=== PATIENT | female | born 1990 | race Caucasian/White ===

== ENCOUNTER 2016-09-06 20:29 | Emergency (ER) | payer OTHER ==
[~2016-09-06] VITALS: Ht 172.7 cm; Wt 122.5 kg
[2016-09-06] MEDS ORDERED: ALLE60TA69 PO (20:42)
[2016-09-06] MEDS ORDERED: ZYRT10CA PO (20:42)
[2016-09-06] MEDS ORDERED: ONDANSETRON 4MG/2ML VIAL (J2405) IV ONE (21:15)
[2016-09-06] MEDS ORDERED: KETOROLAC 30 MG/ML VIAL (J1885) IV ONE (21:15)
[2016-09-06] MEDS ORDERED: NS 1,000 ML IV ONE (21:15)
[2016-09-06 21:33] LABS: BASO # 0.1 K/mm3 (0.0-0.2); BASO % 1.4 % (0.0-1.0); EOS # 0.1 K/mm3 (0.0-0.50); EOS % 1.4 % (0.0-3.0); LARGE UNSTAINED CELL # 0.1 K/mm3 (0.0-0.4); LARGE UNSTAINED CELL % 1.4 % (0.0-4.0); LYMPH # 3.2 K/mm3 (1.5-6.5); LYMPH % 30.7 % (24.0-44.0); MEAN CORPUSCULAR HEMOGLOBIN 30.3 pg (27.0-33.0); MEAN CORPUSCULAR VOLUME 89.2 fl (80.0-96.0); MONO # 0.6 K/mm3 (0.0-0.8); MONO % 5.7 % (0.0-5.0); NEUTROPHILS # 5.8 K/mm3 (1.8-7.7); NEUTROPHILS % 59.3 % (36.0-66.0); PLATELET COUNT, AUTOMATED 323 k/mm3 (150-450); RED CELL DISTRIBUTION WIDTH 11.7 % (11.5-14.5); WHITE BLOOD COUNT 9.8 K/mm3 (4.0-10.0)
[2016-09-06 21:43] LABS: CONTROL LINE UCG INT CTR LINE PRESENT
[2016-09-06 21:46] LABS: ALBUMIN 4.2 GM/DL (3.2-5.2); ALBUMIN/GLOBULIN RATIO 1.24 (1.00-1.93); ALKALINE PHOSPHATASE 80 U/L (45-117); ALT/SGPT 33 U/L (12-78); AMYLASE 53 U/L (25-115); ANION GAP 9 MEQ/L (8-16); AST/SGOT 18 U/L (15-37); BILIRUBIN,DIRECT 0.1 MG/DL (0.0-0.2); BILIRUBIN,TOTAL 0.4 MG/DL (0.2-1.0); BLOOD UREA NITROGEN 14 MG/DL (7-18); CALCIUM LEVEL 9.5 MG/DL (8.5-10.1); CARBON DIOXIDE LEVEL 27 MEQ/L (21-32); CHLORIDE LEVEL 106 MEQ/L (98-107); CREATININE FOR GFR 0.93 MG/DL (0.55-1.02); GLOMERULAR FILTRATION RATE > 60.0 (>60); GLUCOSE, FASTING 97 MG/DL (70-105); POTASSIUM SERUM 3.5 MEQ/L (3.5-5.1); SODIUM LEVEL 142 MEQ/L (136-145); TOTAL PROTEIN 7.6 GM/DL (6.4-8.2)
--- NOTE | 2016-09-06 23:00 | REPUSA ---
HISTORY: Right flank pain. TECHNIQUE: Right upper quadrant ultrasound. COMPARISON: CT abdomen November 26, 2015. ULTRASOUND RUQ: Liver: No intrahepatic ductal dilation. Gallbladder: Normally distended and without stones or wall thickening at 1.9 mm. Common bile duct: Nondistended at 4.8 mm. Pancreas: The tail is poorly visualized due to overlying bowel gas. No pancreatic duct dilation. Right kidney: 12.9 x 6.7 x 6.7 cm. No stones large enough for ultrasound sensitivity. Minimal pelviec tasis without hydronephrosis. Aorta: Normal caliber. Peritoneum: No free fluid. IMPRESSION: No acute right upper quadrant findings. Although there is mild right renal pelviectasis, there is no landon hydronephrosis as visualized on the November 2015 CT abdomen. If there is strong clinic al suspicion for ureteral stone, it may be necessary to perform abdominal pelvic CT.
--- NOTE | 2016-09-06 23:20 | REPUSA ---
CLINICAL HISTORY: Abdominal pain. TECHNIQUE: Multiple axial, sagittal and coronal CT images were obtained through the abdomen and pelvi s without administration of oral or IV contrast material. COMMENTS: The liver is of uniform attenuation without mass or defect. There is no intra or extrahepatic biliary ductal dilatation. The spleen is normal. The gallbladder is contracted. The pancreas is of normal c ontour and attenuation characteristics. There is no evidence of adrenal mass. The kidneys are normal in size, shape and configuration. 4 mm calculus is noted at the right UVJ prod ucing mild hydroureteronephrosis. There is no evidence for appendicitis. There is no bowel wall thickening. No evidence for small or la rge bowel obstruction. There is no evidence of abdominal ascites or lymphadenopathy. There is no evidence of intrinsic or extrinsic bladder mass. There is no pelvic ascites or lymphadeno franklin. The uterus and ovaries are unremarkable. Images of the lung bases show no evidence of pleural or parenchymal mass. There are no pleural effusi ons. The bony structures are free of lytic or blastic lesions. IMPRESSION: 4 mm calculus is noted at the right UVJ producing mild hydroureteronephrosis. Thank you for your kind referral of this patient.
[2016-09-06] MEDS ORDERED: NORC1TAB4 PO (23:52)
[2016-09-06] MEDS ORDERED: IBUP80TA PO (23:52)
[2016-09-06] MEDS ORDERED: ZOFR4TAB3 PO (23:52)
[2016-09-06] MEDS ORDERED: FLOM5CAP PO (23:52)
[2016-09-07] MEDS ORDERED: NORCO 5/325MG TABLET (BULK FOR ED) PO ONE
[2016-09-07 00:12] VITALS: BP 136/74
== END 2016-09-07 00:16 | disposition home or self-care (01) ==
LOC: M ED 20:29
DX: N13.2 Hydronephrosis with renal and ureteral calculous obstruction (principal)
CPT/HCPCS: 74176; 76705; 80048; 80076; 81001; 82150; 83690; 84703; 85025; 87086; 96361; 96374; 96375; 99283; J1885; J2405

== ENCOUNTER → 2016-11-25 | Outpatient (REF) | payer OTHER ==
[~2016-11-25] MED LIST: ALLE60TA69 PO; FLOM5CAP PO; IBUP80TA PO; NORC1TAB4 PO; ZOFR4TAB3 PO; ZYRT10CA PO
[2016-11-25 19:07] LABS: BASO # 0.1 K/mm3 (0.0-0.2); BASO % 1.5 % (0.0-1.0); EOS # 0.2 K/mm3 (0.0-0.50); EOS % 2.5 % (0.0-3.0); LARGE UNSTAINED CELL # 0.1 K/mm3 (0.0-0.4); LYMPH # 2.2 K/mm3 (1.5-6.5); LYMPH % 24.7 % (24.0-44.0); MEAN CORPUSCULAR HEMOGLOBIN 30.1 pg (27.0-33.0); MEAN CORPUSCULAR HGB CONC 33.3 g/dl (32.0-36.5); MEAN CORPUSCULAR VOLUME 90.3 fl (80.0-96.0); MONO # 0.6 K/mm3 (0.0-0.8); MONO % 6.9 % (0.0-5.0); NEUTROPHILS # 5.5 K/mm3 (1.8-7.7); NEUTROPHILS % 63.4 % (36.0-66.0); PLATELET COUNT, AUTOMATED 306 k/mm3 (150-450); WHITE BLOOD COUNT 8.6 K/mm3 (4.0-10.0)
[2016-11-25 20:46] LABS: ERYTHROCYTE SEDIMENTATION RATE 8 mm/hr (0-20)
[2016-11-28 00:06] LABS: Lyme Disease IgG/IgM Antibodie <0.91 ISR (0.00-0.90); Lyme Disease IgM Ab Quantitati <0.80 index (0.00-0.79)
== END ==
LOC: M LABDRAW1 17:18
PROVIDERS: ATTEND Physician Assistant
DX: M25.561 Pain in right knee (principal)

== ENCOUNTER → 2017-01-17 | Outpatient (RCR) | payer OTHER | LOC: M PT 12-29 13:15 | PROVIDERS: ATTEND Physician Assistant | DX: Z51.89 Encounter for other specified aftercare (principal); M25.561 Pain in right knee; M17.11 Unilateral primary osteoarthritis, right knee ==

== ENCOUNTER → 2017-02-17 | Outpatient (RCR) | payer OTHER | LOC: M PT 01-19 10:29 | PROVIDERS: ATTEND Physician Assistant | DX: Z51.89 Encounter for other specified aftercare (principal); M25.561 Pain in right knee; M17.11 Unilateral primary osteoarthritis, right knee ==

== ENCOUNTER 2017-03-04 12:45 | Outpatient (RCR) | payer OTHER | END 2017-03-19 | disposition home or self-care (01) | LOC: M PT 12:45 | PROVIDERS: ATTEND Physician Assistant | DX: Z51.89 Encounter for other specified aftercare (principal); M25.561 Pain in right knee ==

== ENCOUNTER 2017-05-04 18:28 | Emergency (ER) | payer OTHER ==
[~2017-05-04] VITALS: Ht 172.7 cm; Wt 115.9 kg
[2017-05-04] MEDS ORDERED: METF10004 PO (18:41)
[2017-05-04] MEDS ORDERED: MONT10TA2 (18:41)
[2017-05-04] MEDS ORDERED: MELO15TA4 (18:41)
[2017-05-04] MEDS ORDERED: NS 1,000 ML IV ONE ×2 (19:00→20:45)
[2017-05-04] MEDS ORDERED: KETOROLAC 30 MG/ML VIAL (J1885) IV ONE (19:30)
[2017-05-04] MEDS ORDERED: KETOROLAC 30 MG/ML VIAL (J1885) As Ordered ONE (19:30)
[2017-05-04 19:40] LABS: BASO # 0.1 10^3/uL (0.0-0.2); BASO % 0.8 % (0.0-1.0); EOS # 0.2 10^3/uL (0.0-0.50); EOS % 1.9 % (0.0-3.0); IMMATURE GRANULOCYTE % 0.3 % (0-0); LYMPH # 2.5 10^3/uL (1.5-6.5); LYMPH % 25.7 % (24.0-44.0); MEAN CORPUSCULAR HEMOGLOBIN 30.4 pg (27.0-33.0); MEAN CORPUSCULAR HGB CONC 33.5 g/dl (32.0-36.5); MEAN CORPUSCULAR VOLUME 90.8 fl (80.0-96.0); MONO # 0.6 10^3/uL (0.0-0.8); MONO % 6.2 % (0.0-5.0); NEUTROPHILS # 6.3 10^3/uL (1.8-7.7); NEUTROPHILS % 65.1 % (36.0-66.0); PLATELET COUNT, AUTOMATED 286 10^3/uL (150-450); RED CELL DISTRIBUTION WIDTH 11.8 % (11.5-14.5); WHITE BLOOD COUNT 9.6 10^3/uL (4.0-10.0)
[2017-05-04 20:09] LABS: CONTROL LINE HCG INT CTR LINE PRESENT
[2017-05-04 20:16] LABS: ALBUMIN 4.2 GM/DL (3.2-5.2); ALBUMIN/GLOBULIN RATIO 1.24 (1.00-1.93); ALKALINE PHOSPHATASE 67 U/L (45-117); ALT/SGPT 53 U/L (12-78); AMYLASE 49 U/L (25-115); ANION GAP 7 MEQ/L (8-16); AST/SGOT 21 U/L (7-37); BILIRUBIN,DIRECT < 0.1 MG/DL (0.0-0.2); BILIRUBIN,TOTAL 0.2 MG/DL (0.2-1.0); BLOOD UREA NITROGEN 16 MG/DL (7-18); CARBON DIOXIDE LEVEL 29 MEQ/L (21-32); CHLORIDE LEVEL 103 MEQ/L (98-107); CREATININE FOR GFR 0.88 MG/DL (0.55-1.02); GLOMERULAR FILTRATION RATE > 60.0 (>60); GLUCOSE, FASTING 130 MG/DL (70-105); POTASSIUM SERUM 3.1 MEQ/L (3.5-5.1); SODIUM LEVEL 139 MEQ/L (136-145); TOTAL PROTEIN 7.6 GM/DL (6.4-8.2)
[2017-05-04] MEDS ORDERED: MORPHINE 4 MG/ML 1ML SYRINGE IV ONE (20:45)
[2017-05-04] MEDS ORDERED: TAMSULOSIN 0.4 MG CAP PO ONE (20:45)
[2017-05-04 22:52] VITALS: BP 138/86
--- NOTE | 2017-05-05 07:55 | REP ---
Clinical: Left flank pain and renal colic. Comparison: 09/06/2016. Findings: Mild left-sided acute obstructive uropathy edematous enlargement of the kidney, perinephric and periureteral stranding and mild hydroureteronephrosis secondary to a a mm calculus in the left ureterovesicle junction (image 133). 1 mm nonobstructing right renal calculus identified. Remainder of the urinary tract system is unremarkable. Liver, spleen, pancreas, gallbladder, and bilateral adrenal glands are normal for noncontrast evaluation. The enteric system is without obstruction or acute inflammatory process. Normal terminal ileum and appendix identified in the right lower quadrant. Pelvis demonstrates age appropriate uterus / adnexa. No pelvic fluid or ascites. No free air. No adenopathy. Abdominal aorta without aneurysm. Surrounding musculoskeletal structures are intact. Impression: Mild acute left-sided obstructive uropathy with a 2 mm calculus at the ureterovesicle junction. 1 mm nonobstructing right renal calculus noted. Signed by Davi Grossman MD 05/05/2017 07:46 A
== END 2017-05-04 22:53 | disposition home or self-care (01) ==
LOC: M ED 18:28
DX: N20.1 Calculus of ureter (principal); J45.909 Unspecified asthma, uncomplicated; Z87.442 Personal history of urinary calculi; Z79.899 Other long term (current) drug therapy
CPT/HCPCS: 36415; 74176; 80048; 80076; 81001; 82150; 83690; 84703; 85025; 87086; 96361; 96374; 96375; 99284; J1885